=== PATIENT | female | born 1970 | race Caucasian/White ===

== ENCOUNTER 2024-10-08 21:56 | Emergency (ER) | payer OTHER, SELFPAY ==
[2024-10-08 22:01] VITALS: BP 139/85
--- NOTE | 2024-10-08 23:23 | EDRN ---
laceration pascual surface at the base of her L thumb and bruising top of hand with abrasions. No bleeding. Laceration full thickness. Dog is her own and up to date on shots. Pt states that she has had a tetanus in the last 5 yrs.
--- NOTE | 2024-10-09 00:22 | ED.SKININJ ---
HPI-Injury
General
Chief Complaint: Bite
Source: patient
Time Seen by Provider: 10/08/24 23:52
History of Present Illness-Injury
Initial Injury comments:
54-year-old female presenting the emergency department for evaluation after she was excellently bit on the left hand by family dog. Both patient and dog's vaccines are up-to-date. Patient is right-hand dominant. No other injuries were sustained.
Past History
Past History
ED Past Medical History: None
ED Past Surgical History: Gynecological
Social History
Tobacco: Non-smoker
Alcohol: Occasional
Drug: None
Personal: Single
Living: with family
Employment: Employed
Review of Systems
Review of Systems
All Other Systems: ROS reviewed and negative except as documented in HPI and ROS
Phy Exam
Physical Exam
Physical Exam:
GENERAL: Alert , in no apparent distress
EYE: conjunctiva clear
Head: Normocephalic atraumatic
NECK: Supple,
ENT: mmm.
LUNGS: no acute respiratory distress
NEUROLOGICAL: Alert and oriented
SKIN: Warm and dry, V-shaped superficial laceration to the interdigital webbing space between the thumb and index finger. No active bleeding
MUSCULOSKELETAL: well perfused. Full range of motion of all digits. Sensation grossly intact to light
PSYCH: Normal and appropriate interaction.
Scores
Heart Failure Risk
Heart Failure Risk Score: Not Applicable
Heart Score for Chest Pain Patients
STEMI patient?: Not applicable
Withdrawal Assessment of Alcohol
Withdrawal Assessment Completed?: Not applicable
Course
Orders/Labs/Results
Orders:
Orders
10/09/24 00:22
Amoxicillin 875 mg/Clav 125 mg [Augmentin 875 mg/125 mg] 1 tablet PO NOW STA
Vital Signs
Initial and Last Documented VS:
Initial Vital Signs
Temp Pulse Resp BP Pulse Ox
97.6 F 90 16 139/85 95
10/08/24 22:01 10/08/24 22:01 10/08/24 22:01 10/08/24 22:01 10/08/24 22:01
Last Documented Vital Signs
Temp Pulse Resp BP Pulse Ox
97.6 F 90 16 139/85 95
10/08/24 22:01 10/08/24 22:01 10/08/24 22:01 10/08/24 22:01 10/08/24 22:01
Procedures
Laceration Closure
Left Hand:
Status of Wound: clean
Size of Wound in cm: 1
Description of Wound Edges: sharp
Preparation: cleaned with saline
Anesthesia: 1% Lidocaine
Revision/Debridement: routine- no revision
Skin Closure Material: 5-0 nylon
Number of sutures: 2
Additional information:
Laceration was only loosely approximated to be left open due to injury occurring from bite wound
MDM/Problems Addressed
Differential Diagnosis Includes:
Superficial laceration, no concern for tendon or nerve injury
MDM/Problems Addressed:
54-year-old female presenting to the ER for evaluation of left hand laceration sustained from an accidental bite from family dog. Patient and dog's vaccines are up-to-date. No other injuries were sustained. Laceration is mostly superficial. I do
not have concern for tendon or nerve injury. Laceration repaired as above without any difficulty. Patient given dose of 10 here. Prescription sent to pharmacy. Patient aware of wound care recommendation as well as suture removal in 10 to 14
days. Aware of return precautions
*Pulse Oximetry
Patient hypoxic: no
*Critical Care Note
Total Time (30-74mins, 75-104mins- exclusive of procedures): Not Applicable
ED Attending Note
-
Portions of this chart may have been created with voice recognition software.� Occasional wrong word or��sound alike� substitutions may have occurred due to the inherent limitations of voice recognition software.
Discharge Plan
Departure
Patient Disposition: Home (Routine Discharge)
Date of Disposition: 10/09/24
Time of Disposition: 00:22
Patient with high blood pressure during this ER visit?: No
Discharge Problem:
Dog bite, Laceration of hand, left
Instructions: Animal Bites (DC)
Prescriptions:
New
amoxicillin-pot clavulanate 875-125 mg tablet
1 tab PO BID Qty: 13 0RF
Referrals:
Peng Funez DO [Family Provider] -
Interventions
Interventions:
*Risk Screen - Suicide Last Done: 10/08/24 22:01
*General Assessment Last Done: 10/08/24 22:01
*Neglect/Abuse Screening Last Done: 10/08/24 23:19
ED- Fall Risk Assessment Last Done: 10/08/24 23:19
*ED COVID-19 Vaccine History Last Done: 10/08/24 23:19
ED-Skin Assessment Last Done: 10/08/24 23:19
Discharge Date and Time
Print Language: [place]
[2024-10-09] MEDS: AUGMENTIN 875 MG/125 MG 1 TABLET PO (00:33)
[2024-10-09 00:40] VITALS: BP 120/82
== END 2024-10-09 00:40 | disposition home or self-care (01) ==
LOC: EMR 21:56
PROVIDERS: EMERGENCY PHYSICIAN Emergency Medicine; FAMILY PHYSICIAN Family Medicine
DX: S61.412A Laceration without foreign body of left hand, initial encounter (principal); W54.0XXA Bitten by dog, initial encounter
CPT/HCPCS: 12001; 99283